=== PATIENT | female | born 1960 | race Caucasian/White ===

== ENCOUNTER 2017-01-02 01:59 | Emergency (ER) | payer BC, OTHER ==
[~2017-01-02] VITALS: Ht 157.5 cm; Wt 85.5 kg
[~2017-01-02 01:59] MED LIST: CIPRO500 MG PO; PERCOCET 5/31 TABLET PO
[2017-01-02 02:02] VITALS: BP 153/89
== END 2017-01-02 03:08 | disposition home or self-care (01) ==
LOC: EME 01:59
DX: H57.8 Other specified disorders of eye and adnexa (principal); K21.9 Gastro-esophageal reflux disease without esophagitis; Z90.49 Acquired absence of other specified parts of digestive tract; F17.200 Nicotine dependence, unspecified, uncomplicated
CPT/HCPCS: 99281; 99284

== ENCOUNTER 2018-01-27 20:07 | Observation (INO) | payer BC, OTHER ==
[~2018-01-27] VITALS: Ht 157.5 cm; Wt 97.8 kg
[2018-01-27 20:51] LABS: HEMATOCRIT 41.2 % (36.0-46.0); MCH 31.6 PG (29.0-34.0); PLATELET COUNT 163 K/uL (156-360); RBC DIS.WIDTH-CV 13.4 % (11.8-14.6); RBC DIS.WIDTH-SD 45.4 % (39-53); RED BLOOD COUNT 4.43 M/uL (3.80-5.20); WHITE BLOOD COUNT 9.9 K/uL (4.1-10.2)
[2018-01-27 21:12] LABS: CHLORIDE 105 mEq/L (99-109); POTASSIUM 4.9 mEq/L (3.7-5.4); SODIUM 143 mEq/L (136-147)
[2018-01-27 21:14] LABS: GLUCOSE 91 mg/dL (70-99)
[2018-01-27 21:18] LABS: CREATININE 1.1 mg/dL (0.6-1.3)
[2018-01-27 21:19] LABS: UREA NITROGEN (BUN) 17 mg/dL (9-23)
[2018-01-27 21:23] LABS: GFR ESTIMATE (CALCULATED) 54 mL/min/
[2018-01-27 21:25] LABS: TROP-I INTERPRETATION NEGATIVE; TROPONIN-I < 0.01 ng/mL (0.0-0.30)
[2018-01-28] MEDS ORDERED: PANTOPRAZOLE SO40 MG PO (00:09)
[2018-01-28 03:13] VITALS: BP 158/93
[2018-01-28 03:36] LABS: ALBUMIN 4.5 g/dL (3.2-4.8)
[2018-01-28 03:39] LABS: TOTAL PROTEIN 7.8 g/dL (6.4-8.3)
[2018-01-28 03:41] LABS: TOTAL BILIRUBIN 0.4 mg/dL (0.0-1.0)
[2018-01-28 03:42] LABS: ALKALINE PHOSPHATASE 68 IU/L (3-129)
[2018-01-28 03:44] LABS: AST (GOT) 47 IU/L (2-34)
[2018-01-28 03:45] LABS: ALT (GPT) 70 IU/L (3-49); DIRECT BILIRUBIN 0.1 mg/dL (0.0-0.3)
[2018-01-28 03:46] LABS: LIPASE 31 U/L (1.0-51.0)
[2018-01-28 03:58] LABS: D-DIMER ELISA < 150.00 ng/mLDDU (<230)
[2018-01-28 04:00] VITALS: BP 143/95
[2018-01-28 04:19] LABS: TROP-I INTERPRETATION NEGATIVE; TROPONIN-I < 0.01 ng/mL (0.0-0.30)
[2018-01-28 07:30] VITALS: BP 123/63
[2018-01-28 07:40] LABS: THYROTROPIN (TSH) 7.6 MIU/L (0.4-5.5)
[2018-01-28] MEDS ORDERED: LOPRESSOR25 MG PO (09:41)
[2018-01-28] MEDS ORDERED: ASPIR-LOW81 MG PO (09:42)
[2018-01-28 11:21] LABS: TROP-I INTERPRETATION NEGATIVE; TROPONIN-I < 0.01 ng/mL (0.0-0.30)
[2018-01-28 11:40] VITALS: BP 115/60
== END 2018-01-28 13:06 | disposition home or self-care (01) ==
LOC: EME 20:07 → EDOF 01-28 02:15 → ENRESERV 01-28 02:17 → 4SOUTH 01-28 03:10
PROVIDERS: Hospitalist
DX: R07.89 Other chest pain (principal); R00.2 Palpitations; R06.02 Shortness of breath; R51 Headache; R03.0 Elevated blood-pressure reading, without diagnosis of hypertension; E03.9 Hypothyroidism, unspecified; E78.5 Hyperlipidemia, unspecified; K31.84 Gastroparesis; F31.9 Bipolar disorder, unspecified; F41.9 Anxiety disorder, unspecified; K21.9 Gastro-esophageal reflux disease without esophagitis; E66.9 Obesity, unspecified; Z68.39 Body mass index [BMI] 39.0-39.9, adult; Z79.82 Long term (current) use of aspirin; Z90.49 Acquired absence of other specified parts of digestive tract; Z90.710 Acquired absence of both cervix and uterus; F17.210 Nicotine dependence, cigarettes, uncomplicated; Z82.49 Family history of ischemic heart disease and other diseases of the circulatory system; Z83.3 Family history of diabetes mellitus; Z84.1 Family history of disorders of kidney and ureter; Z88.5 Allergy status to narcotic agent; Z88.8 Allergy status to other drugs, medicaments and biological substances
CPT/HCPCS: 71046; 80048; 80076; 83690; 84443; 84484; 85027; 85379; 93005; 99281; 99285; G0378; J1885